=== PATIENT | female | born 1975 | race Caucasian/White ===

== ENCOUNTER 2017-02-24 17:56 | Emergency (ER) | payer OTHER ==
[~2017-02-24] VITALS: Ht 154.9 cm; Wt 63.2 kg
[2017-02-24 17:59] VITALS: BP 124/83; PULSE 81; RESP 12; O2SAT 98
--- NOTE | 2017-02-24 18:31 | ED.REPORT ---
HPI-Extremity Problem Lower Date of Service Feb 24, 2017 ED Provider: Michael Mckeon DO A 41 year old female with no pertinent medical history presents to the ED complaining of right knee pain. The pt was playing softball today and was sliding into second base when she inverted her right foot and felt a pop in her right knee. She experienced immediate pain and was unable to bear weight or walk on her right leg. The pain decreased significantly while she rested on the way to the ED. Nursing Notes Stated Complaint: INJURY TO RIGHT KNEE Chief Complaint: Extremity Trauma Nursing Notes Reviewed: Yes Allergies: Coded Allergies: No Known Allergies (Unverified Allergy, Unknown, 02/24/17) General Time Seen by MD: 18:31 Chief Complaint Knee injury right Hx Obtained From: Patient Arrived By: Walk-in Onset Occurred: 1 - 4 hours ago Symptom Duration: Since onset Recent Healthcare: No recent doctor visit, No recent hospitalization Similar Sx Previous: No Past Medical History Past Medical History none reported Past Surgical History none reported Smoking History Unknown if Ever Smoker Social History Alcohol Use: 1-3 per week Ambulatory Status Independent Review of Systems Constitutional: Denies: Fever Musculoskeletal: Reports: Joint pain (right knee), Denies: Back pain, Neck pain Skin: Denies Rash Complete sys rev & neg: except as marked. Respiratory: Denies: Non-productive cough, Shortness of breath Cardiovascular: Denies: Chest pain GI: Denies: Abdominal pain Physical Exam Initial Vital Signs Vital Signs (First) Date Time Temp Pulse Resp B/P Pulse Ox O2 Delivery O2 Flow Rate FiO2 02/24/17 17:59 36.4 81 12 124/83 98 Room Air Initial VS: Reviewed Lower Extremity / Pelvis / MS: Neurologic intact, Vascular intact right thigh, ankle, tibia, and fibula normal quadriceps mechanism intact negative anterior and posterior drawer test swelling and tenderness along joint line laxity and valgus stress consistent with joint injury Ankle / Foot: Atraumatic, Full range of motion General/Constitutional: Awake, Alert Respiratory / Chest: Atraumatic, Breath sounds NL, Breath sounds = bilat, No respiratory distress Cardiovascular: Heart rate NL, Regular rhythm, Heart sounds NL Skin: Atraumatic, Color NL, No rash, Warm, Dry Neurologic: Oriented X3, Speech NL, No motor deficits, No sensory deficits Head / Eyes: Atraumatic, Normocephalic, PERRL, EOMI ENT: Atraumatic, Airway patent, Mucous membranes moist Neck: Atraumatic, Supple, Full range of motion Abdomen: Atraumatic, Soft, Non-tender Back: Atraumatic, Full range of motion Upper Extremity / MS: Atraumatic, Full range of motion Psychiatric: Affect NL, Mood NL Interpretation & Diagnostics Pulse Oximetry Interpretation Pulse Oximetry Interpretation: 98% on room air Pulse Oximetry: Pulse Ox normal X-Ray Interpretation Xray Interpretation: IMPRESSION: No acute fracture. No osseous lesion. If clinical suspicion and/or symptoms persist, further assessment with repeat plainfilms, or advanced imaging (e.g., CT, MRI, or bone scan) may be helpful for further assessment. Dictated by: Zayra Yusuf M.D. on 02/24/2017 at 19:04 Approved by: Zayra Yusuf M.D. on 02/24/2017 at 19:05 X-Ray Ordered: Knee right Interpretation / Wet Read by: Interpret - Radiologist Re-Eval/Medical Decision Med Decision/Clinical Course Right MCL seems very lax on examination Reminder of the exam is normal. No signs of dislocation. Bounding pedal pulses. We will place her in a knee immobilizer and crutches. Refer to orthopedics for definitive management. Short course of Vicoprofen prescribed for pain. Routine opiate warnings given. Source of Hx: Old records Re-Evaluation/Progress : Time of Eval: 19:04 Patient Status: Condition improved Re-Evaluation/Progress Note: Pt rechecked, who is comfortable. She is informed of her radiology results, diagnosis, and the plan for discharge. The pt understands and agrees with the plan. All questions are addressed at this time. Counseled Regarding: Diagnosis, Lab results, Need for follow-up, When/why to return to ED Discharge & Departure Impression: Primary Impression: Knee MCL sprain Encounter type: initial encounter Laterality: right Qualified Code: S83.411A - Sprain of medial collateral ligament of right knee, initial encounter Disposition: Home Discharge Condition All VS Reviewed: Yes Condition: Stable Patient Instructions: Knee Sprain (GEN), Splint Care (ED) Additional Instructions: I suspect that you will have a sprain or possibly torn medial collateral ligament on your right knee. Use the knee immobilizer for all ambulation. Use the crutches for ambulation as well. Take 1 Vicoprofen every 6 hours as needed for severe pain. For moderate pain take Tylenol 500 mg every 6 hours as directed. Contact Dr. Keller's office for follow-up. The x-ray looked normal however I think you will need an MRI unless symptoms resolve. Do not hesitate to return for any problems or any worsening symptoms. Do not drive or consume alcohol or other anti-inflammatories while taking the Vicoprofen. Referrals: Martha Whitley MD (PCP) Alex Keller MD Attestation Portions of this note were transcribed by Rebecca Odom. I, Dr. Mckeon personally performed the history, physical exam and medical decision-making; I reviewed and confirmed the accuracy of the information in the transcribed note. Signed by: Malick Sanchez, 02/24/2017 and 2044. copies to: Martha Whitley MD; Alex Keller MD, Todd P DO Feb 24, 2017 18:31 REBECCA ODOM Feb 24, 2017 18:42
--- NOTE | 2017-02-24 19:07 | DRSVH ---
PROCEDURE: X-RAY RIGHT KNEE, THREE VIEWS ([id number]) INDICATIONS: knee injury TECHNIQUE: 3 views of the knee were acquired. COMPARISON: None. FINDINGS: Bones: No fractures or dislocations. No suspicious bony lesions. Soft tissues: No joint effusion. No suspicious soft tissue calcifications. IMPRESSION: No acute fracture. No osseous lesion. If clinical suspicion and/or symptoms persist, fur ther assessment with repeat plainfilms, or advanced imaging (e.g., CT, MRI, or bone scan) may be help ful for further assessment. Dictated by: Zayra Yusuf M.D. on 02/24/2017 at 19:04 Approved by: Zayra Yusuf M.D. on 02/24/2017 at 19:05
[2017-02-24 19:51] VITALS: BP 120/81; PULSE 69; O2SAT 100
== END 2017-02-24 19:53 | disposition home or self-care (01) ==
LOC: SED 17:56
DX: S83.411A Sprain of medial collateral ligament of right knee, initial encounter (principal); X50.1XXA Overexertion from prolonged static or awkward postures, initial encounter; W18.40XA Slipping, tripping and stumbling without falling, unspecified, initial encounter; Y92.009 Unspecified place in unspecified non-institutional (private) residence as the place of occurrence of the external cause; Y93.64 Activity, baseball; Y99.8 Other external cause status